=== PATIENT | female | born 1965 | race Caucasian/White ===

== ENCOUNTER 2022-06-14 05:18 | Emergency (ER) | payer BC ==
[~2022-06-14] VITALS: Ht 160 cm; Wt 50.0 kg
[~2022-06-14 05:18] MED LIST: ATOR40TA PO; AZEL50GE5 TOP
[2022-06-14] MEDS ORDERED: morphine 10mg/ml inj. IV ONE (05:35)
[2022-06-14] MEDS ORDERED: ondansetron/PF 4mg/2ml inj IV ONE (05:35)
[2022-06-14 05:44] VITALS: BP 160/92
[2022-06-14] MEDS ORDERED: HYDROcodone/acetaminophen 10/325mg tab PO ONE (05:45)
[2022-06-14] MEDS ORDERED: ONDA4TAB12 PO (06:02)
[2022-06-14] MEDS ORDERED: HYDR-3972 PO (06:02)
[2022-06-14] MEDS ORDERED: morphine 4 MG/ML inj SYRINge IV ONE (06:10)
[2022-06-14] MEDS ORDERED: ketorolac trometh. 30mg/ml inj. IV ONE (06:10)
== END 2022-06-14 07:12 | disposition home or self-care (01) ==
LOC: ER 05:18
DX: S42.031A Displaced fracture of lateral end of right clavicle, initial encounter for closed fracture (principal); W06.XXXA Fall from bed, initial encounter; Y93.89 Activity, other specified; Y92.89 Other specified places as the place of occurrence of the external cause; Y99.8 Other external cause status; E78.00 Pure hypercholesterolemia, unspecified; Z79.899 Other long term (current) drug therapy
CPT/HCPCS: 73000; 73030; 96374; 96375; 96376; 99284; J1885; J2270; J2274; J2405; A4565